=== PATIENT | female | born 1990 | race Caucasian/White ===

== ENCOUNTER 2018-04-13 18:37 | Emergency (ER) | payer OTHER ==
[~2018-04-13] VITALS: Ht 180.3 cm; Wt 78.5 kg
[2018-04-13 18:48] VITALS: TEMP 98.3
[2018-04-13 19:18] LABS: BASO % 0.5 % (0.0-2.0); EOS # 0.2 (0.0-0.7); EOS % 1.8 % (0-4.0); GRAN # 4.6 (1.4-6.5); GRAN % 55.1 % (42.2-75.2); HEMOGLOBIN 10.7 g/dl (12.5-16.0); LYMPH # 2.8 (1.2-3.4); LYMPH % 33.7 % (20.0-51.0); MEAN CELL VOLUME 84 fl (80.0-100.0); MEAN CORPUSCULAR HEMOGLOBIN 28 pg (27.0-31.0); MEAN CORPUSCULAR HGB CONC 33 g/dl (33.0-37.0); MEAN PLATELET VOLUME 10.5 fl (7.4-10.4); MONO # 0.7 (0.1-0.6); MONO % 8.7 % (1.7-9.3); PLATELET COUNT 231 K/mm3 (130-400); RED BLOOD COUNT 3.81 M/mm3 (4.10-5.30); REDCELL DISTRIBUTION WIDTH-CV 13.4 % (11.5-14.5)
[2018-04-13 19:25] LABS: ALANINE AMINOTRANSFERASE 32 U/L (9-52); ALBUMIN 4.2 gm/dL (3.5-5.0); ALKALINE PHOSPHATASE 44 U/L (50-136); ANION GAP 7 mmol/L (7-16); AST,SGOT 22 U/L (15-37); BILIRUBIN,TOTAL < 0.1 mg/dL (0.0-1.0); BLOOD UREA NITROGEN 20 mg/dL (7-17); CALCIUM 9.1 mg/dL (8.4-10.2); CARBON DIOXIDE 24 mmol/L (22-30); CHLORIDE 108 mmol/L (98-107); CREATININE, serum 0.73 mg/dL (0.52-1.25); GLUCOSE 88 mg/dL (74-106); POTASSIUM 3.8 mmol/L (3.4-5.0); SODIUM 139 mmol/L (137-145)
[2018-04-13 20:24] VITALS: BP 124/69; PULSE 74
== END 2018-04-13 20:25 | disposition home or self-care (01) ==
LOC: COL.ER 18:37
PROVIDERS: Emergency Medicine
DX: M79.661 Pain in right lower leg (principal)
CPT/HCPCS: J1650

== ENCOUNTER → 2018-04-14 | Outpatient (CLI) | payer OTHER | LOC: COL.VAS 08:56 | DX: M79.604 Pain in right leg (principal); R79.1 Abnormal coagulation profile | CPT/HCPCS: J2405 ==

== ENCOUNTER 2018-09-29 04:09 | Emergency (ER) | payer OTHER, MEDICAID ==
[~2018-09-29] VITALS: Ht 180.3 cm; Wt 82.7 kg
[2018-09-29] MEDS ORDERED: PROZAC 20MG20 MG PO (04:26)
[2018-09-29] MEDS ORDERED: ATARAX50 MG PO (04:27)
[2018-09-29] MEDS ORDERED: INDERAL 20MG20 MG PO (04:27)
[2018-09-29] MEDS ORDERED: TOPAMAX 25MG25 M1 PO (04:27)
[2018-09-29] MEDS ORDERED: SUDAFED30 MG PO (05:29)
[2018-09-29] MEDS ORDERED: TESSALON PERLE200 MG PO (05:29)
[2018-09-29] MEDS ORDERED: BENADRYL25 M2 PO (05:29)
[2018-09-29 06:10] VITALS: BP 127/79; PULSE 88; TEMP 98.9
== END 2018-09-29 06:11 | disposition home or self-care (01) ==
LOC: COL.ER 04:09
DX: B34.9 Viral infection, unspecified (principal)

== ENCOUNTER 2019-02-12 08:57 | Emergency (ER) | payer MEDICAID ==
[~2019-02-12] VITALS: Ht 180.3 cm; Wt 87.3 kg
[~2019-02-12 08:57] MED LIST: ATARAX50 MG PO; BENADRYL25 M2 PO; INDERAL 20MG20 MG PO; PROZAC 20MG20 MG PO; SUDAFED30 MG PO; TESSALON PERLE200 MG PO; TOPAMAX 25MG25 M1 PO
[2019-02-12 09:35] LABS: BASO % 0.5 % (0.0-2.0); EOS # 0.2 (0.0-0.7); EOS % 2.6 % (0-4.0); GRAN # 3.5 (1.4-6.5); GRAN % 53.4 % (42.2-75.2); HEMOGLOBIN 12.2 g/dl (12.5-16.0); LYMPH # 2.3 (1.2-3.4); LYMPH % 35.4 % (20.0-51.0); MEAN CELL VOLUME 88 fl (80.0-100.0); MEAN CORPUSCULAR HEMOGLOBIN 30 pg (27.0-31.0); MEAN CORPUSCULAR HGB CONC 34 g/dl (33.0-37.0); MEAN PLATELET VOLUME 10.8 fl (7.4-10.4); MONO # 0.5 (0.1-0.6); MONO % 7.8 % (1.7-9.3); PLATELET COUNT 246 K/mm3 (130-400); RED BLOOD COUNT 4.02 M/mm3 (4.10-5.30); REDCELL DISTRIBUTION WIDTH-CV 11.8 % (11.5-14.5)
[2019-02-12 09:43] LABS: COLLECTION METHOD CLEAN CATCH
[2019-02-12 09:46] LABS: HEMATOCRIT 35.5 % (37.0-47.0)
[2019-02-12 09:49] LABS: MUCOUS Present /lpf; PH 5 (5-8); URINE APPEARANCE Cloudy; URINE BACTERIA None Seen /hpf; URINE BILIRUBIN Negative (NEGATIVE); URINE BLOOD Negative (NEGATIVE); URINE COLOR Yellow; URINE GLUCOSE Negative (NEGATIVE); URINE KETONE Negative (NEGATIVE); URINE LEUKOCYTE ESTERASE 1+ (NEGATIVE); URINE NITRATE Negative (NEGATIVE); URINE PROTEIN(semi-quant) Negative (NEGATIVE); URINE UROBILINOGEN Negative (NEGATIVE)
[2019-02-12 09:49] LABS: ALANINE AMINOTRANSFERASE 10 U/L (9-52); ALBUMIN 4.2 gm/dL (3.5-5.0); ALKALINE PHOSPHATASE 54 U/L (50-136); ANION GAP 7 mmol/L (7-16); AST,SGOT 23 U/L (15-37); BILIRUBIN,TOTAL 0.4 mg/dL (0.0-1.0); BLOOD UREA NITROGEN 14 mg/dL (7-17); C-REACTIVE PROTEIN 0.7 mg/dL (0.0-0.9); CALCIUM 8.9 mg/dL (8.4-10.2); CARBON DIOXIDE 25 mmol/L (22-30); CHLORIDE 108 mmol/L (98-107); CREATININE, serum 0.81 (0.52-1.25); GLUCOSE 89 mg/dL (74-106); POTASSIUM 3.9 mmol/L (3.4-5.0); SODIUM 140 mmol/L (137-145); TOTAL PROTEIN 7.1 gm/dL (6.4-8.2)
[2019-02-12 10:01] LABS: TROPONIN-I < 0.012 ng/mL (0.000-0.035)
[2019-02-12 12:43] VITALS: BP 117/66; PULSE 64; TEMP 97.7
[2019-02-14] MEDS ORDERED: MIRENA52 MG IY (10:24)
[2019-02-14] MEDS ORDERED: PREDNISONE20 MG PO (12:09)
== END 2019-02-12 12:43 | disposition home or self-care (01) ==
LOC: COL.ER 08:57
PROVIDERS: Family Medicine
DX: R07.9 Chest pain, unspecified (principal); Z99.81 Dependence on supplemental oxygen
CPT/HCPCS: J1650; J1885; J2405; J7030

== ENCOUNTER 2019-03-11 17:50 | Emergency (ER) | payer MEDICAID ==
[~2019-03-11] VITALS: Ht 180.3 cm; Wt 84.5 kg
[~2019-03-11 17:50] MED LIST changes: +MIRENA52 MG IY; +PREDNISONE20 MG PO
[2019-03-11 17:56] VITALS: BP 121/76; TEMP 98.1
[2019-03-11] MEDS ORDERED: PROAIR HFA0.09 MG/AC IH (17:59)
[2019-03-11] MEDS ORDERED: ZITHROMAX 250M250 MG PO (19:25)
[2019-03-11] MEDS ORDERED: PREDNISONE20 MG PO (19:25)
[2019-03-11 20:20] VITALS: PULSE 83
== END 2019-03-11 20:20 | disposition home or self-care (01) ==
LOC: COL.ER 17:50
DX: J20.9 Acute bronchitis, unspecified (principal); D68.2 Hereditary deficiency of other clotting factors
CPT/HCPCS: J7512

== ENCOUNTER 2019-03-19 12:40 | Emergency (ER) | payer MEDICAID ==
[~2019-03-19] VITALS: Ht 180.3 cm; Wt 85.7 kg
[~2019-03-19 12:40] MED LIST changes: +PROAIR HFA0.09 MG/AC IH; +ZITHROMAX 250M250 MG PO
[2019-03-19 12:54] VITALS: BP 113/68; TEMP 98.8
[2019-03-19] MEDS ORDERED: TUSS PO (14:45)
[2019-03-19] MEDS ORDERED: DOXYCYCLINE 10100 MG PO (14:45)
[2019-03-19 15:20] VITALS: PULSE 79
== END 2019-03-19 15:20 | disposition home or self-care (01) ==
LOC: COL.ER 12:40
DX: J20.9 Acute bronchitis, unspecified (principal)

== ENCOUNTER 2019-05-15 08:58 | Emergency (ER) | payer MEDICAID ==
[~2019-05-15] VITALS: Ht 180.3 cm; Wt 88.2 kg
[~2019-05-15 08:58] MED LIST changes: +DOXYCYCLINE 10100 MG PO; +TUSS PO
[2019-05-15 09:02] VITALS: BP 119/75; TEMP 98.4
[2019-05-15 10:01] LABS: BASO % 0.3 % (0.0-2.0); EOS # 0.1 (0.0-0.7); EOS % 1.1 % (0-4.0); GRAN # 4.4 (1.4-6.5); GRAN % 60.2 % (42.2-75.2); HEMOGLOBIN 11.1 g/dl (12.5-16.0); LYMPH % 27.6 % (20.0-51.0); MEAN CELL VOLUME 88 fl (80.0-100.0); MEAN CORPUSCULAR HEMOGLOBIN 30 pg (27.0-31.0); MEAN CORPUSCULAR HGB CONC 34 g/dl (33.0-37.0); MEAN PLATELET VOLUME 10.5 fl (7.4-10.4); MONO # 0.8 (0.1-0.6); MONO % 10.4 % (1.7-9.3); PLATELET COUNT 211 K/mm3 (130-400); RED BLOOD COUNT 3.67 M/mm3 (4.10-5.30); REDCELL DISTRIBUTION WIDTH-CV 12.2 % (11.5-14.5)
[2019-05-15 10:05] LABS: HEMATOCRIT 32.3 % (37.0-47.0)
[2019-05-15 10:09] LABS: ALANINE AMINOTRANSFERASE 20 U/L (9-52); ALBUMIN 3.8 gm/dL (3.5-5.0); ALKALINE PHOSPHATASE 51 U/L (50-136); ANION GAP 6 mmol/L (7-16); AST,SGOT 22 U/L (15-37); BILIRUBIN,TOTAL 0.1 mg/dL (0.0-1.0); BLOOD UREA NITROGEN 10 mg/dL (7-17); CALCIUM 8.5 mg/dL (8.4-10.2); CARBON DIOXIDE 26 mmol/L (22-30); CHLORIDE 107 mmol/L (98-107); CREATININE, serum 0.83 (0.52-1.25); GLUCOSE 98 mg/dL (74-106); INR 1.1 (0.8-3.0); POTASSIUM 3.7 mmol/L (3.4-5.0); PROTHROMBIN TIME 12.5 SECONDS (9.7-12.8); SODIUM 139 mmol/L (137-145); TOTAL PROTEIN 6.6 gm/dL (6.4-8.2)
[2019-05-15 10:28] LABS: TROPONIN-I < 0.012 ng/mL (0.000-0.035)
[2019-05-15 11:55] VITALS: PULSE 76
== END 2019-05-15 11:55 | disposition home or self-care (01) ==
LOC: COL.ER 08:58
PROVIDERS: Physician Assistant
DX: R07.89 Other chest pain (principal); J45.909 Unspecified asthma, uncomplicated; Z86.2 Personal history of diseases of the blood and blood-forming organs and certain disorders involving the immune mechanism
CPT/HCPCS: J7030; Q9967

== ENCOUNTER 2019-07-14 09:29 | Emergency (ER) | payer MEDICAID ==
[~2019-07-14] VITALS: Ht 180.3 cm; Wt 86.8 kg
[2019-07-14 09:35] VITALS: BP 122/62; TEMP 97.8
[2019-07-14 10:19] VITALS: PULSE 86
== END 2019-07-14 10:19 | disposition home or self-care (01) ==
LOC: COL.ER 09:29
DX: J11.1 Influenza due to unidentified influenza virus with other respiratory manifestations (principal)

== ENCOUNTER → 2019-08-11 | Outpatient (CLI) | payer MEDICAID | LOC: COL.VAS 09:46 | DX: M79.609 Pain in unspecified limb (principal); Z83.2 Family history of diseases of the blood and blood-forming organs and certain disorders involving the immune mechanism ==

== ENCOUNTER 2019-10-15 10:12 | Emergency (ER) | payer MEDICAID ==
[~2019-10-15] VITALS: Ht 180.3 cm; Wt 86.8 kg
[2019-10-15 10:16] VITALS: BP 136/61; TEMP 97.7
[2019-10-15 10:27] LABS: COLLECTION METHOD CLEAN CATCH
[2019-10-15 10:38] LABS: MUCOUS Present /lpf; PH 5 (5-8); SQUAMOUS EPITHELIAL 0-2 /hpf; URINE APPEARANCE Hazy; URINE BACTERIA None Seen /hpf; URINE BILIRUBIN Negative (NEGATIVE); URINE BLOOD 1+ (NEGATIVE); URINE COLOR Yellow; URINE GLUCOSE Negative (NEGATIVE); URINE KETONE Negative (NEGATIVE); URINE LEUKOCYTE ESTERASE Negative (NEGATIVE); URINE NITRATE Negative (NEGATIVE); URINE PROTEIN(semi-quant) Negative (NEGATIVE); URINE UROBILINOGEN Negative (NEGATIVE)
[2019-10-15] MEDS ORDERED: FLEXERIL 1010 MG/TAB PO (10:59)
[2019-10-15] MEDS ORDERED: CEFTIN500 MG PO (10:59)
[2019-10-15] MEDS ORDERED: D3-5050000 IU PO (11:10)
[2019-10-15] MEDS ORDERED: MAG OXIDE (11:11)
[2019-10-15 11:19] VITALS: PULSE 89
[2019-10-16] MEDS ORDERED: BACTRIM DS 8001 TAB PO ×2 (16:09)
== END 2019-10-15 11:21 | disposition home or self-care (01) ==
LOC: COL.ER 10:12
PROVIDERS: Emergency Medicine
DX: N39.0 Urinary tract infection, site not specified (principal)
CPT/HCPCS: J0696; J1885

== ENCOUNTER → 2019-10-18 | Outpatient (CLI) | payer MEDICAID ==
[~2019-10-18] MED LIST changes: +BACTRIM DS 8001 TAB PO; +CEFTIN500 MG PO; +D3-5050000 IU PO; +FLEXERIL 1010 MG/TAB PO; +MAG OXIDE
== END ==
LOC: COL.RAD 12:30
DX: G43.409 Hemiplegic migraine, not intractable, without status migrainosus (principal); G93.0 Cerebral cysts; M54.2 Cervicalgia
CPT/HCPCS: A9585

== ENCOUNTER → 2019-11-06 | Outpatient (CLI) | payer MEDICAID | LOC: COL.RAD 12:46 | DX: G93.0 Cerebral cysts (principal); G43.409 Hemiplegic migraine, not intractable, without status migrainosus; D68.59 Other primary thrombophilia; Z86.718 Personal history of other venous thrombosis and embolism | CPT/HCPCS: Q9967 ==

== ENCOUNTER → 2019-11-10 | Outpatient (CLI) | payer MEDICAID | LOC: COL.CARD 12:44 | DX: G43.409 Hemiplegic migraine, not intractable, without status migrainosus (principal); R20.0 Anesthesia of skin; G51.4 Facial myokymia ==

== ENCOUNTER 2020-01-15 09:52 | Outpatient (CLI) | payer MEDICAID ==
[2020-01-15] VITALS (8 sets, daily range): BP systolic 100–117; BP diastolic 52–65; PULSE 50–65
[~2020-01-15] VITALS: Ht 180.3 cm; Wt 88.9 kg
[~2020-01-15 09:52] MED LIST changes: +BIRTH CONTROL; +DEPAKOTE ER 50500 MG PO
--- NOTE | 2020-01-15 11:00 | NUR ---
Report from Ana Luisa TAN. Transferred to [facility] by cart. Morrison to low back CD&I. VSS
[2020-01-15 11:36] LABS: CSF APPEARANCE CLEAR; CSF COLOR COLORLESS
[2020-01-15 11:37] LABS: CSF RBC < 1 /mm3 (0-0)
[2020-01-15 11:38] LABS: GLUCOSE,CSF 51 mg/dL (40-70); TOTAL PROTEIN,CSF 27 mg/dL (15-45)
[2020-01-15 12:36] LABS: CSF MONONUCLEAR 100 % (70-100); CSF POLYMORPHONUCLEAR 0 % (0-6)
--- NOTE | 2020-01-15 13:05 | NUR ---
Discharge instructions given. transferred to private car by [place]
== END 2020-01-15 13:05 | disposition home or self-care (01) ==
LOC: COL.RAD 09:52
PROVIDERS: Nurse Practitioner
DX: R20.0 Anesthesia of skin (principal)

== ENCOUNTER → 2020-05-10 | Outpatient (CLI) | payer BC, MEDICAID | LOC: MC.RAD 12:20 | DX: N60.02 Solitary cyst of left breast (principal) ==

== ENCOUNTER 2020-07-16 20:03 | Emergency (ER) | payer BC, MEDICAID ==
[~2020-07-16] VITALS: Ht 177.8 cm; Wt 90.0 kg
[2020-07-16] MEDS ORDERED: ADDERALL10 MG PO (20:19)
[2020-07-16 20:46] VITALS: BP 136/76; PULSE 86; TEMP 98.8
== END 2020-07-16 20:46 | disposition home or self-care (01) ==
LOC: COL.ER 20:03
DX: T23.001A Burn of unspecified degree of right hand, unspecified site, initial encounter (principal); X10.2XXA Contact with fats and cooking oils, initial encounter